=== PATIENT | male | born 1985 | race Caucasian/White ===

== ENCOUNTER 2016-04-17 08:02 | Inpatient (IN) | payer MEDICAID ==
[2016-04-17 08:20] VITALS: BP 127/84
[2016-04-17 08:51] LABS: URINE BILIRUBIN SMALL (NEGATIVE); URINE BLOOD NEGATIVE (NEGATIVE); URINE COLOR YELLOW; URINE GLUCOSE (UA) NEGATIVE (NEGATIVE); URINE KETONE NEGATIVE (NEGATIVE); URINE PH 7.5; URINE PROTEIN NEGATIVE (NEGATIVE)
--- NOTE | 2016-04-17 08:57 | ED Physician Chart ---
Chief Complaint/HPI - Patient Information Date Seen:: 04/17/16 Time Seen:: 08:52 Chief Complaint:: abd p History of Present Illness:: pt w hx of liver transplant at 7y.o.a. 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 pt says he has no idea how he got from [facility] to this area...he has holes in his memory..he does recall that he has been having abd p worsening x last 2 weeks in cental abd. w associated diarrrhea recently. some nausea but no vomiting. he recalls [facility] but cant tell me what they did or how recent. he denies drinking etoh. he says he is not normally on pain meds but does recall being on tramadol in last few months after a hospital dc. no recent fever. only med is prograf pts PDMP record shows he has had 140 tramadol 50mg tabs rxd since 03/20 over 5 different providers rx's... Allergies:: Allergies Allergy/AdvReac Type Severity Reaction Status Date / Time acetaminophen AdvReac Verified 04/17/16 08:18 erythromycin base AdvReac Verified 04/17/16 08:18 Vitals:: Vital Signs - 8 hr 04/17/16 04/17/16 08:19 08:21 Temp 97.7 F HR 81 RR 16 BP 127/84 127/84 O2 Sat % 100 Historian:: Patient Review of Systems - Review of Systems General/Constitutional: No fever, No chills, No weight loss, No weakness, No diaphoresis, No edema, No loss of appetite Skin: No skin lesions, No rash, No bruising Head: No headache, No light-headedness Eyes: No loss of vision, No pain, No diplopia ENT: No earache, No nasal drainage, No sore throat, No tinnitus Neck: No neck pain, No swelling, No thyromegaly, No stiffness, No mass noted Cardio Vascular: No chest pain, No palpitations, No PND, No orthopnea, No edema Pulmonary: No SOB, No cough, No sputum, No wheezing GI: Nausea, No vomiting, Diarrhea, Pain, No melena, No hematochezia, No constipation, No hematemesis G/U: No dysuria, No frequency, No hematuria Musculoskeletal: No bone or joint pain, No back pain, No muscle pain Endocrine: No polyuria, No polydipsia Psychiatric: No prior psych history, No depression, No anxiety, No suicidal ideation Hematopoietic: No bruising, No lymphadenopathy Allergic/Immuno: No urticaria, No angioedema Neurological: No syncope, No focal symptoms, No weakness, No paresthesia, No headache, No seizure, No dizziness, Confusion (???), No confusion, No vertigo Past Medical History - Past Medical History Past Medical History: Other (liver failure/..s/p Liver Transplant) Social History: Smoker, No Alcohol, Illicit Drug Use (mj only) Medication: Reviewed Family Medical History - Family Member Mother History Unknown: Yes Sister History Unknown: Yes Physical Exam - Physical Examination General/Constitutional: Awake, Well-developed, well-nourished, Alert, No distress, GCS 15, Non-toxic appearing, Ambulatory Other Gen/Cons comments:: very thin male. he is alert and easily talkative about subjects he feels forthcomming about...his memory seems very suspiciously selective...he had perfect memory of most events Head: Atraumatic Eyes: Lids, conjuctiva normal, PERRL, EOMI Skin: Nl inspection, No rash, No skin lesions, No ecchymosis, Well hydrated, No lymphadenopathy ENMT: External ears, nose nl, Nasal exam nl, Lips, teeth, gums nl Neck: Nontender, Full ROM w/o pain, No JVD, No nuchal rigidity, No bruit, No mass, No stridor Respiratory: Nl effort/Exclusion, Clear to Auscultation, No Wheeze/Rhonchi/Rales Cardio Vascular: RRR, No murmur, gallop, rubs, NL S1 S2 GI: No organomegaly, No hernia, Normal BS's, Nondistended, No mass/bruits, No McBurney tenderness Other GI comments:: tndr in mid abd. pos nabs. no masses. old scars at upper abd from prior abd sx. : No CVA tenderness Extremities: No tenderness or effusion, Full ROM, normal strength in all extremities, No edema, Normal digits & nails Neuro/Psych: Alert/oriented, DTR's symmetric, Normal sensory exam, Normal motor strength, Judgement/insight normal, Mood normal, Normal gait, No focal deficits Misc: normal gait, Normal back, No paraspinal tenderness Labs/Radiology/EKG Results - Lab Results Results: Laboratory Tests 04/17/16 04/17/16 04/17/16 08:40 08:40 08:55 WBC 18.5 H RBC 4.52 Hgb 14.7 Hct 43.2 MCV 95.5 MCH 32.5 H MCHC Differential 34.0 RDW 13.0 Plt Count 157 MPV 9.7 Band Neutrophils % 5 Neutrophils (Manual) 82 H Lymphocytes 4 L Monocytes 5 Eosinophils 4 Platelet Estimate ADEQUATE Platelet Morphology NORMAL RBC Morph Micro Appear NORMAL Sodium Potassium Chloride Carbon Dioxide Anion Gap BUN Creatinine Est GFR ( Amer) Est GFR (Non-Af Amer) BUN/Creatinine Ratio Glucose Whole Bld Lactic Acid Calcium Total Bilirubin AST ALT Alkaline Phosphatase Ammonia Total Protein Albumin Globulin Albumin/Globulin Ratio Amylase Lipase Urine Source CLEAN C Urine Color YELLOW Urine Clarity SL. CLOUDY Urine pH 7.5 Ur Specific [place] 1.020 Urine Protein NEGATIVE Urine Glucose (UA) NEGATIVE Urine Ketones NEGATIVE Urine Blood NEGATIVE Urine Nitrate NEGATIVE Urine Bilirubin SMALL H Urine Urobilinogen 1.0 Ur Leukocyte Esterase NEGATIVE Urine RBC NONE SEEN Urine WBC NONE SEEN Ur Epithelial Cells RARE Amorphous Sediment MANY PHOSPHATES Urine Bacteria NONE SEEN Urine Opiates Screen NEGATIVE Ur Barbiturates Screen NEGATIVE Ur Phencyclidine Scrn NEGATIVE Amphetamines Screen POSITIVE H U Methamphetamines Scrn POSITIVE H U Benzodiazepines Scrn NEGATIVE U Cocaine Metab Screen NEGATIVE U Cannabinoids Screen POSITIVE H Ethyl Alcohol 04/17/16 04/17/16 04/17/16 08:55 08:55 08:55 WBC RBC Hgb Hct MCV MCH MCHC Differential RDW Plt Count MPV Band Neutrophils % Neutrophils (Manual) Lymphocytes Monocytes Eosinophils Platelet Estimate Platelet Morphology RBC Morph Micro Appear Sodium 134 L Potassium 4.3 Chloride 109 H Carbon Dioxide 20.0 L Anion Gap 9.3 BUN 25 Creatinine 0.9 Est GFR ( Amer) > 60.0 Est GFR (Non-Af Amer) > 60.0 BUN/Creatinine Ratio 27.8 Glucose 114 H Whole Bld Lactic Acid 0.77 Calcium 9.3 Total Bilirubin 2.7 H AST 133 H ALT 207 H Alkaline Phosphatase 838 H Ammonia Total Protein 6.6 Albumin 4.2 Globulin 2.4 Albumin/Globulin Ratio 1.8 Amylase Lipase 43 Urine Source Urine Color Urine Clarity Urine pH Ur Specific [place] Urine Protein Urine Glucose (UA) Urine Ketones Urine Blood Urine Nitrate Urine Bilirubin Urine Urobilinogen Ur Leukocyte Esterase Urine RBC Urine WBC Ur Epithelial Cells Amorphous Sediment Urine Bacteria Urine Opiates Screen Ur Barbiturates Screen Ur Phencyclidine Scrn Amphetamines Screen U Methamphetamines Scrn U Benzodiazepines Scrn U Cocaine Metab Screen U Cannabinoids Screen Ethyl Alcohol 04/17/16 04/17/16 04/17/16 08:55 08:55 08:55 WBC RBC Hgb Hct MCV MCH MCHC Differential RDW Plt Count MPV Band Neutrophils % Neutrophils (Manual) Lymphocytes Monocytes Eosinophils Platelet Estimate Platelet Morphology RBC Morph Micro Appear Sodium Potassium Chloride Carbon Dioxide Anion Gap BUN Creatinine Est GFR ( Amer) Est GFR (Non-Af Amer) BUN/Creatinine Ratio Glucose Whole Bld Lactic Acid Calcium Total Bilirubin AST ALT Alkaline Phosphatase Ammonia 68 H Total Protein Albumin Globulin Albumin/Globulin Ratio Amylase 88 Lipase Urine Source Urine Color Urine Clarity Urine pH Ur Specific [place] Urine Protein Urine Glucose (UA) Urine Ketones Urine Blood Urine Nitrate Urine Bilirubin Urine Urobilinogen Ur Leukocyte Esterase Urine RBC Urine WBC Ur Epithelial Cells Amorphous Sediment Urine Bacteria Urine Opiates Screen Ur Barbiturates Screen Ur Phencyclidine Scrn Amphetamines Screen U Methamphetamines Scrn U Benzodiazepines Scrn U Cocaine Metab Screen U Cannabinoids Screen Ethyl Alcohol < 10 - Radiology Results Results: ct abd/p - nad. poor deliniation of bowel wall margins, hepatosplenomegally, mild gen bowel dilatation of unk sig, mild dist stool filled sigmoid colon Assessment - Assessment Critical Care Time: 90 Excludes all billable procedures: Yes This condition life threatening/high prob of deterioration: Yes Assessment/Comments:: pt w immunosupression due to liver transplans/anti-rejection meds. Seems unreliable as historian but high wbc could indicate a serious infection and r/o sepsis required. r/o of graft failure/rejection. ED Septic Shock - . Is Septic Shock (SBP<90, OR Lactate>4 mmol\L) present?: No - <6hrs of presentation: Vital Signs: Vital Signs - 8 hr 04/17/16 04/17/16 08:19 08:21 Temp 97.7 F HR 81 RR 16 BP 127/84 127/84 O2 Sat % 100 Reassessment (Disposition) - Reassessment Reassessment:: case dw Dr Kahn...will admit. (10:58) pt given zosyn as precaution given high wbc and imunosupression hx. Reassessment Condition:: Improved - Diagnosis Diagnosis:: 1 abdominal pain of unknown source 2 liver transplant pt on immunosupressive drug - Patient Disposition Admitted to:: Med/Surg Condition at Disposition:: Improved
[2016-04-17 08:58] LABS: URINE AMORPHOUS SEDIMENT MANY PHOSPHATES (NONE SEEN); URINE BACTERIA NONE SEEN /hpf (NONE SEEN); URINE EPITHELIAL CELLS RARE /lpf (FEW); URINE RBC NONE SEEN /hpf (0-5); URINE WBC NONE SEEN /hpf (0-5)
[2016-04-17] MEDS: Sodium Chloride 0.9% 1,000 ML IV ONE ×2 (09:15→21:18)
[2016-04-17 09:26] LABS: ALB/GLOB RATIO 1.8 (1.0-1.8); ALKALINE PHOSPHATASE 838 U/L (34-104); ANION GAP 9.3 (7.0-16.0); BILIRUBIN,TOTAL 2.7 mg/dL (0.3-1.0); BUN - UREA NITROGEN 25 mg/dL (7-25); BUN/CREATININE RATIO 27.8; CALCIUM SERUM 9.3 mg/dL (8.6-10.3); CHLORIDE 109 mEq/L (98-107); CREATININE - SERUM 0.9 mg/dL (0.7-1.3); GLUCOSE 114 mg/dL (70-105); HEMATOCRIT 43.2 % (39.0-49.0); HEMOGLOBIN 14.7 gm/dL (13.2-17.3); MEAN CELL VOLUME 95.5 fl (80-99); MEAN CORPUSCULAR HEMOGLOBIN 32.5 pg (26.0-30.0); MEAN PLATELET VOLUME 9.7 fl; PLATELET COUNT 157 Th/cmm (150-400); POTASSIUM SERUM 4.3 mEq/L (3.5-5.1); RED BLOOD COUNT 4.52 Mil/cmm (4.30-5.70); SGOT 133 U/L (13-39); SGPT/ALT 207 U/L (7-52); SODIUM SERUM 134 mEq/L (136-145); WHITE BLOOD COUNT 18.5 Th/cmm (4.8-10.8)
[2016-04-17 09:32] LABS: AMPHETAMINE URINE POSITIVE (NEGATIVE); BARBITURATES URINE NEGATIVE (NEGATIVE)
[2016-04-17 09:54] LABS: BAND NEUTROPHILE 5 % (0-10); EOSINOPHIL 4 % (0-5); NEUTROPHILS 82 % (40-80); TOTAL CELLS COUNTED 100
[2016-04-17 09:55] LABS: PLATELET ESTIMATE ADEQUATE (NORMAL); PLATELET MORPHOLOGY NORMAL (NORMAL)
[2016-04-17] MEDS ORDERED: HYDROmorphone 1 mg/mL 1mL Syr IVP STA (10:25)
[2016-04-17] MEDS ORDERED: HYDROmorphone 1 mg/mL 1mL Syr ONE (10:27)
--- NOTE | 2016-04-17 10:40 | Diagnostic Imaging Report ---
CT scan abdomen and pelvis without intravenous contrast HISTORY: Pain, liver transplant, leukocytosis Total DLP equals 336 CTDI equals 6.6 Axial sections were obtained from the xiphoid process down to the pubic symphysis. The exam is limited due to the absence of oral/bowel contrast. Poor delineation of the bowel margins. The liver exhibits a generous sized homogeneous parenchyma. The spleen is enlarged. No focal abnormality seen in the region of the pancreas. Debris filled stomach noted. No focal renal lesions. No calculi. No hydronephrosis. As noted above, evaluation of the bowel is limited due to the absence of oral/bowel contrast. Mild generalized small bowel dilatation of questionable significance. No definite evidence of obstruction. Mildly distended stool-filled sigmoid colon and rectum. No abnormal masses or fluid collections are seen within the pelvis. IMPRESSION: 1. Somewhat limited exam with poor delineation of bowel wall margins due to the absence of oral/bowel contrast 2. Hepatosplenomegaly 3. Mild generalized small bowel dilatation of questionable significance. Mildly distended stool-filled sigmoid colon the rectum.
[2016-04-17] MEDS ORDERED: Sodium Chloride 0.9% 1,000 ML IV ONE (11:11)
[2016-04-17] MEDS ORDERED: Morphine Sulfate 2 mg/mL 1mL Syr IV PRN (11:13)
--- NOTE | 2016-04-17 12:39 | Consultation ---
Consult Note - Consult Note Service Date: 04/17/16 Consult Note: PHYSICIAN Consultation Note: Date of Admission: 04/17/16 Purpose of Consultation: Leukocytosis. Chief Complaint: Patient CIARA BOYER was admitted to location Medical/ Surgical Unit I with ABDOMINAL PAIN. History of Present Illness: 30 Y M with history of liver transplant for liver failure, brought to the ED for abdominal pain. He had developed right sided abdominal pain for one day associated with nausea and diarrhea . On initial evaluation, his temperature was 97.7 degree F and WBC Count was 18,500. CT scan of abdomen and pelvis was performed and it showed hepato-splenomegaly and dilated small bowels. He feels little better at this time. He was started on zosyn and ID consult was called for further antibiotic management. Patient denies any fever, chills or diaphoresis. . Past Medical History: Liver transplant for liver failure. 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 Allergies Allergy/AdvReac Type Severity Reaction Status Date / Time acetaminophen AdvReac Verified 04/17/16 08:18 erythromycin base AdvReac Verified 04/17/16 08:18 Vital Signs Temp 98.4 F 04/17/16 11:25 Pulse 64 04/17/16 11:25 Resp 15 04/17/16 11:25 BP 105/68 04/17/16 11:25 Pulse Ox 99 04/17/16 11:25 Home Medication Medication Instructions Recorded Type Tacrolimus [Prograf] 5 mg PO BID 04/17/16 History Current Medications Generic Name Dose Route Start Last Admin Trade Name Freq PRN Reason Stop Dose Admin Sodium Chloride 1,000 mls @ 100 mls/hr 04/17/16 11:11 Nacl 0.9% IV 04/17/16 21:10 .Q10H ONE Piperacillin Sod/Tazobactam 100 mls @ 200 mls/hr 04/17/16 12:00 Sod 4.5 gm/ Sodium Chloride IV 06/16/16 11:59 Q6H SELENE Morphine Sulfate 2 mg 04/17/16 11:13 Morphine IV 06/16/16 11:12 Q3HR PRN Pain (Mild) Ondansetron HCl 4 mg 04/17/16 12:00 Zofran IV 06/16/16 11:59 Q4H PRN NAUSEA/VOMITING Review of Systems: A 12 point ROS was reviewed with the pertinent positive and negatives noted in the HPI. Physical Exam: General: Cachectic. No Acute Distress Vital Signs Temp 98.4 F 04/17/16 11:25 Pulse 64 04/17/16 11:25 Resp 15 04/17/16 11:25 BP 105/68 04/17/16 11:25 Pulse Ox 99 04/17/16 11:25 HEENT: EOMI Bilaterally, PERRLA Bilaterally, Head is normocephalic, atraumatic on inspection. Cardio: +S1/S2 Auscultated, RRR, no murmurs/rubs/gallops noted Respiratory: Clear to Auscultate Bilaterally Abdominal: Soft, Nondistended, tender RUQ and RLQ, BS present. scaphoid. Surgical scars on RUQ healed. Extremities: No Edema noted in the lower extremities Neurological: AAOx3 cranial Nerves II-XII intact bilaterally, Gait Steady, No Focal Deficits noted. Assessment/Plan: 1. abdominal pain with diarrhea. Suspect gastroenteritis. suspect CDAC. 2. Liver Transplant. 3. Transaminitis, suspect transplant rejection. may also from opportunistic infections. 4. Leukocytosis, suspect sepsis. may have other etiologies too. 5. Forgetfulness, suspect hepatic encephalopathy. improving. RECOMMENDATIONS: Will continue zosyn, start flagyl. check stool cultures and stool for c diff toxin. Check viral studies for CMV, EBV and HSV May transfer him to transplant center for further evaluation as there is transaminitis and increase in bilirubin level. GI consult. May get report from [facility]. WANG Oliva, William Kahn M.D. [id number]
[2016-04-17] MEDS ORDERED: Diatrizoate Meglumine/Diatri 30 mL Sol PO ONE (13:55)
[2016-04-17] MEDS: HYDROmorphone 1 mg/mL 1mL Syr IVP PRN ×2 (16:42→21:19)
[2016-04-17] MEDS ORDERED: TACROLIMUS 5 MG PO SCH ×2 (17:00)
[2016-04-17] MEDS: TACROLIMUS 5 MG PO SCH (17:40)
--- NOTE | 2016-04-17 19:02 | Admit Criteria Form ---
Admit Criteria Forms - Admit Criteria Diagnosis: ABDOMINAL PAIN Clinical Indications for Admission to Inpatient Care (Place 'X' for any and all applicable criteria): Admission is indicated for ANY ONE of the following(1)(2)(3)(4)(5): [ X]I. Inpatient admission required rather than observation care (Also use Abdominal Pain: Observation Care, as appropriate) because of ANY ONE of the following: [ ]a) Severe pain requiring acute inpatient management [ ]b) Identification of etiology/finding that requires inpatient care (eg, aortic dissection, free air) [ ]c) Absent bowel sounds with complete ileus(6) [ ]d) Suspected toxic megacolon [ ]e) Severe electrolyte abnormalities requiring inpatient care [ ]f) High fever or infection requiring inpatient admission as indicated by ANY ONE of following(7)(8): [ ] i) Appropriate outpatient or observational care antimicrobial treatment unavailable, not effective, or not feasible [ ] ii) Documented bacteremia [ ] iii) Temperature > 104.9 degrees F (oral) [ ] iv) T >103.1 F (oral) or < 96.8 F(rectal) that does not respond to all emergency treatment measures [ ]g) Signs of intestinal obstruction [B] [ ]h) Hemodynamic instability [ ]i) IV fluid to replace significant ongoing losses (greater than 3 L/m2 per day) (12)(13) [ ]j) Percutaneous or open drainage (eg, abscess, biliary tract ) procedures [ ]k) Parenteral nutrition regimen that must be implemented on inpatient basis [ X]l) Other condition,treatment or monitoring requiring inpatient admission. [ ]II. Peritoneal signs present [ ]III. Surgery needed that cannot be performed on an ambulatory basis. [ ]IV. Evaluation requires patient to not eat or drink for extended period ( eg, more than 24 hours). [ ]V. Contraindications and/or Inappropriate clinical situations for Observational Care in patients with abdominal pain, when ANY ONE of the following is required: [ ]a) Thorough evaluation is required to prevent catastrophic events due to delays in diagnosing (e.g.Mesenteric ischemia) 1,3 [ ]b) Patient with severe pathology or with chronic symptoms unlikely to improve in the ED stay (3) [ ]. General contraindications and/or Inappropriate clinical situations for Observational Care in patients with abdominal pain, when ANY ONE of the following is required: [ ]a) Prediction of prolongation of LOS based on ANY ONE of the following may be considered as a contraindication for observational care 2, 3, 4, 5, 6, 7, 8, 9, 10, 11 [ ]i) Age > 65 yrs. [ ]ii) Patient arriving by ambulance [ ]iii) Patient with high acuity [ ]iv) Patient requiring vital sign monitoring [ ]v) Patient on IV medication [ ]b) Systolic blood pressures 180mmHg 3,12 [ ]c) Patient with altered mental status including delirium and other alteration of consciousness, (3) [ ]d) Patient whose discharge disposition will be to a intermediate home or rehabilitation home should not be managed in Emergency Department Observation Unit. CMS rule requires 3 days hospital stay before such placement.3,13 [ ]e) Patient with failure to thrive due to broad array of etiologies 3,16,17 [ ]f) Inability to ambulate 3,14 Extended stay beyond goal length of stay may be needed for(2)(3): [ ]a) Persistent abdominal pain with suspected intra-abdominal process [ ]b) Diagnosed condition requiring continued stay (e.g., pancreatitis, complicated diverticulitis) [ ]c) Surgery (e.g., colectomy) The original [facility] content created by [employer] has been revised. The portions of the content which have been revised are identified through the use of italic text or in bold, and [facility] has neither reviewed nor approved the modified material.All other unmodified content is copyright [facility]. Please see references footnoted in the original [facility] edition 2016 Admit Criteria Met?: Yes
[2016-04-17 19:26] LABS: PROTHROMBIN TIME (TEST) 8.9 SECONDS (9.5-11.5)
[2016-04-17 19:44] LABS: INR 0.9 (0.5-1.4)
--- NOTE | 2016-04-17 20:02 | History & Physical ---
REASON FOR ADMISSION: Acute gastroenteritis in this patient with liver transplant on Prograf 5 mg twice a day and prednisone 40 mg once a day with elevated AST and ALT and alkaline phosphatase, right-sided pain with nausea and vomiting, came via ambulance, appeared that he was at the [facility] parking lot, paramedics were called and the patient was brought to the [facility] Emergency Room. Initial workup revealed WBC of 18.5 with band of 5 and the patient had midepigastric area pain, very poor historian. Other workup including CT abdomen and pelvis revealed that small bowel dilatation is noted, hepatosplenomegaly is noted and the patient urine tox screen positive for cannabinoids and methamphetamine and amphetamine positive. MEDICATIONS: With the patient include Prograf 5 mg twice a day the patient was taking 4 mg twice a day was increased at [facility] on 03/09/2016. The patient is also on prednisone 40 mg once a day. The patient is on Atarax 25 t.i.d. Also, on Protonix 40 once a day and metformin 500 twice a day and ursodiol 250 mg three times a day. SOCIAL HISTORY: The patient denies alcohol use or tobacco use. Tox screen positive for methamphetamine and amphetamine and cannabinoid. PAST MEDICAL HISTORY: The patient as a child has ADHD from age of 7. Medications from ADD or ADHD led into the liver failure requiring liver transplant. The patient is on above-mentioned medications. Also, previous history of liver rejection. The patient currently sleeping, awakened ____, but give very poor history. PHYSICAL EXAMINATION: GENERAL: Height is 1.75 meter, weight 68 kg, BMI 22.2, not in acute distress, well-developed, well-built. VITAL SIGNS: Temperature 97.3, pulse 70, respiratory rate 20, blood pressure 115/79, saturation on room air 98%. HEENT: No icterus. No pallor. No oral candidiasis. No petechiae. NECK: Supple. No JVD, bruits or lymphadenopathy. LUNGS: ____. CARDIOVASCULAR: S1 and S2 normal limits. ABDOMEN: Soft, scaphoid, loose bowel movement is noted. Bowel sound otherwise is active. No hepatosplenomegaly. EXTREMITIES: No leg edema. CENTRAL NERVOUS SYSTEMS: Cranial nerves intact. Nonfocal. MUSCULOSKELETAL: No clubbing, cyanosis or synovitis. LABORATORY TESTS: Urine tox screen positive for amphetamines, methamphetamine and cannabinoid. Urinalysis, pH 7.5, specific gravity 1.020 and wbcs not seen. Sodium 134, potassium 4.3, chloride 109, bicarbonate 20, BUN 25, creatinine 0.9, glucose of 114. Calcium 9.3. Bilirubin 2.7. AST 133. ALT 207. Alkaline phosphatase 838. Ammonia level 68, protein 6.6, albumin 4.2, amylase 88, lipase 43. WBC 18.5 thousand, hemoglobin 14.7, MCV 95, platelet of 157,000, neutrophil [address] abdomen and pelvis revealed small bowel dilatation, hepatosplenomegaly. Alcohol level was 92. ASSESSMENT AND PLAN: Acute gastroenteritis with right-sided abdominal pain with elevated transaminitis in this patient of liver transplant on Prograf and prednisone with leukocytosis and methamphetamine and cannabinoid positive in the urine. With elevated bilirubin, appeared obstructive jaundice could be from the toxicity of the amphetamine, methamphetamine, cannabinoid versus liver transplant rejection. The patient also ____ rule out small bowel obstruction, C. difficile colitis versus any other etiology including CMV, EBV, herpes simplex, C. difficile colitis, giardiasis. Workup initiated with C. difficile stool, Giardia in the stool and CMV, EBV, herpes simplex, PCR, stool for ova, stool for culture is already initiated. We will also monitor TSH, uric acid, urinalysis, CBC, CMP, amylase, lipase, ammonia level in the morning. Case discussed with registered nurse hh case manager and they will try to arrange his transfer to the transplant unit if the patient's condition worsens while the patient is waiting at present time small bowel follow through series for GI recommendation, Dr. Claudio. Case discussed with Dr. Claudio. Case discussed with IVDr. William and registered nurse hh case manager and nurse at length. Current condition is guarded. Overall prognosis is poor and depended on the patient's improvement of current condition. Advised the patient at length to avoid amphetamines, methamphetamines and cannabinoid and follow up at [facility] transplant unit. JOB# [id number]
[2016-04-18] MEDS: HYDROmorphone 1 mg/mL 1mL Syr IVP PRN ×5 (00:59→21:18)
--- NOTE | 2016-04-18 01:11 | Consultation ---
INPATIENT GASTROINTESTINAL CONSULTATION REFERRING PHYSICIAN: Dr. Arash Kahn. REASON FOR PROCEDURE: Elevated LFTs. 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 The patient has been on a prednisone and Prograf. He came into the hospital because he was had right-sided abdominal pain associated with some nausea and some loose bowel movements. Denies having any melena, hematochezia, hematemesis, or coffeeground emesis. PAST MEDICAL HISTORY: Liver failure, on immunosuppressants. PAST SURGICAL HISTORY: Liver transplant. FAMILY HISTORY: Negative for liver disease. SOCIAL HISTORY: Denies tobacco or alcohol. ALLERGIES: ACETAMINOPHEN, ERYTHROMYCIN. CURRENT MEDICATIONS: Morphine, Zofran, Zosyn. REVIEW OF SYSTEMS: Ten point review of system was performed and the pertinent positives were nausea and abdominal pain, loose bowel movements. All other systems were otherwise negative. PHYSICAL EXAMINATION: VITAL SIGNS: Temperature is 97.3, breathing 20, pulse of 70, blood pressure 115/79, satting 98%. GENERAL: No apparent distress. EYES: Anicteric, normal conjunctivae. HEENT: Normocephalic, atraumatic. Moist mucous membranes. NECK: Soft, supple. CHEST: Clear. No effort. CARDIOVASCULAR: Regular rate and rhythm. ABDOMEN: Soft, nondistended, tender right quadrant. No rebound or guarding. SKIN: Warm, dry. EXTREMITIES: Reveal no cyanosis. LABORATORY DATA: Show white count ____, hemoglobin 14.7, platelets of 157, total bilirubin 2.7, AST 133, ALT 207, alkaline phosphatase 838, ammonia 68, amylase 88, lipase 43. Alcohol level was negative. Marijuana was positive. Amphetamine was positive. Methamphetamine was positive. CT abdomen and pelvis was performed and showed hepatosplenomegaly, generalized small bowel dilatation of questionable significance. IMPRESSION: This is a 30-year-old male with abdominal pain, elevated LFTs. Cause of the abdominal pain could be from an ileus versus small-bowel obstruction, elevated LFTs could be from rejection versus acute liver injury, due to toxin effect, especially this patient has methamphetamine, amphetamine and marijuana in his system. He was told to avoid illicit drugs. They have a detrimental effect on his liver. PLAN: 1. Small bowel follow through. 2. Follow LFTs. 3. Check stool studies. 4. Consider transfer to ____ Center with liver transplant capability for care. Thank you for allowing me to participate. Please call me if any questions. [facility]# [id number]
[2016-04-18] MEDS: TACROLIMUS 5 MG PO SCH ×2 (06:23→18:51)
[2016-04-18 06:39] LABS: % BASOPHILS 0.7 % (0.0-2.0); % EOSINOPHILS 4.7 % (0.0-5.0); % LYMPHOCYTES 30.4 % (20.0-50.0); % MONOCYTES 10.4 % (2.0-10.0); % NEUTROPHILS 53.8 % (40.0-80.0); HEMOGLOBIN 12.9 gm/dL (13.2-17.3); MEAN CELL VOLUME 96.9 fl (80-99); MEAN CORPUSCULAR HEMOGLOBIN 33.4 pg (26.0-30.0); MEAN CORPUSCULAR HGB CONC 34.4 pg (28.0-36.0); MEAN PLATELET VOLUME 9.8 fl; NEUTROPHILE ABSOLUTE 2.4 Th/cmm (1.8-8.0); RED BLOOD COUNT 3.86 Mil/cmm (4.30-5.70); RED CELL DISTRIBUTION WIDTH 12.9 % (11.5-20.0)
[2016-04-18 06:55] LABS: ALB/GLOB RATIO 1.8 (1.0-1.8); ALKALINE PHOSPHATASE 740 U/L (34-104); ANION GAP 2.5 (7.0-16.0); BUN - UREA NITROGEN 17 mg/dL (7-25); CALCIUM SERUM 8.8 mg/dL (8.6-10.3); CARBON DIOXIDE 25.4 mEq/L (21.0-31.0); CHLORIDE 110 mEq/L (98-107); GLUCOSE 124 mg/dL (70-105); POTASSIUM SERUM 3.9 mEq/L (3.5-5.1); SGOT 105 U/L (13-39); SGPT/ALT 174 U/L (7-52); SODIUM SERUM 134 mEq/L (136-145)
[2016-04-18 06:58] LABS: URIC ACID 3.1 mg/dL (4.4-7.6)
[2016-04-18 07:06] LABS: HEMATOCRIT 37.4 % (39.0-49.0); PLATELET COUNT 104 Th/cmm (150-400); WHITE BLOOD COUNT 4.4 Th/cmm (4.8-10.8)
[2016-04-18 07:49] LABS: TSH 1.52 uIU/ml (0.34-5.60)
--- NOTE | 2016-04-18 16:50 | Diagnostic Imaging Report ---
Small bowel follow-through HISTORY: Pain The preliminary viscera washer radiograph demonstrates stool-filled nondilated large bowel. Contrast passed freely from the stomach into the small bowel. Normal small bowel caliber and mucosal fold pattern. Normal transit time. No obvious focal lesions. No evidence of any extrinsic masses. IMPRESSION: Negative examination
[2016-04-19] MEDS: HYDROmorphone 1 mg/mL 1mL Syr IVP PRN ×5 (02:33→19:51)
[2016-04-19 05:46] LABS: % BASOPHILS 0.2 % (0.0-2.0); % LYMPHOCYTES 16.5 % (20.0-50.0); % MONOCYTES 6.2 % (2.0-10.0); % NEUTROPHILS 76.1 % (40.0-80.0); HEMOGLOBIN 13.2 gm/dL (13.2-17.3); MEAN CELL VOLUME 96.4 fl (80-99); MEAN CORPUSCULAR HEMOGLOBIN 33.4 pg (26.0-30.0); MEAN CORPUSCULAR HGB CONC 34.6 pg (28.0-36.0); MEAN PLATELET VOLUME 9.5 fl; PLATELET COUNT 113 Th/cmm (150-400); RED BLOOD COUNT 3.94 Mil/cmm (4.30-5.70); RED CELL DISTRIBUTION WIDTH 12.6 % (11.5-20.0)
[2016-04-19 06:44] LABS: ALB/GLOB RATIO 1.6 (1.0-1.8); ALKALINE PHOSPHATASE 683 U/L (34-104); ANION GAP 9.4 (7.0-16.0); BILIRUBIN,TOTAL 1.6 mg/dL (0.3-1.0); BUN - UREA NITROGEN 16 mg/dL (7-25); CALCIUM SERUM 9.2 mg/dL (8.6-10.3); CHLORIDE 103 mEq/L (98-107); GLUCOSE 156 mg/dL (70-105); POTASSIUM SERUM 3.4 mEq/L (3.5-5.1); SGOT 84 U/L (13-39); SGPT/ALT 169 U/L (7-52); SODIUM SERUM 138 mEq/L (136-145)
[2016-04-19 07:09] LABS: WHITE BLOOD COUNT 7.9 Th/cmm (4.8-10.8)
[2016-04-19 12:40] LABS: URINE BACTERIA NONE SEEN /hpf (NONE SEEN); URINE BILIRUBIN NEGATIVE (NEGATIVE); URINE BLOOD NEGATIVE (NEGATIVE); URINE COLOR YELLOW; URINE EPITHELIAL CELLS RARE /lpf (FEW); URINE GLUCOSE (UA) NEGATIVE (NEGATIVE); URINE KETONE NEGATIVE (NEGATIVE); URINE PROTEIN NEGATIVE (NEGATIVE); URINE RBC NONE SEEN /hpf (0-5); URINE WBC NONE SEEN /hpf (0-5)
[2016-04-19 12:41] LABS: URINE AMORPHOUS SEDIMENT MODERATE PHOSPHATES (NONE SEEN)
[2016-04-19] MEDS ORDERED: Potassium Chloride 20 mEq ER Tab PO ONE (12:52)
--- NOTE | 2016-04-19 13:55 | Infectious Disease Prog Note ---
Infectious Disease Subjective - Review of Systems Service Date: 04/19/16 Infectious Disease Objective - Results Result Diagrams: 04/19/16 05:35 04/19/16 05:35 Recent Labs: Laboratory Last Values WBC 7.9 Th/cmm (4.8-10.8) D 04/19/16 05:35 RBC 3.94 Mil/cmm (4.30-5.70) L 04/19/16 05:35 Hgb 13.2 gm/dL (13.2-17.3) 04/19/16 05:35 Hct 38.0 % (39.0-49.0) L 04/19/16 05:35 MCV 96.4 fl (80-99) 04/19/16 05:35 MCH 33.4 pg (26.0-30.0) H 04/19/16 05:35 MCHC Differential 34.6 pg (28.0-36.0) 04/19/16 05:35 RDW 12.6 % (11.5-20.0) 04/19/16 05:35 Plt Count 113 Th/cmm (150-400) L 04/19/16 05:35 MPV 9.5 fl 04/19/16 05:35 Neutrophils % 76.1 % (40.0-80.0) 04/19/16 05:35 Band Neutrophils % 5 % (0-10) 04/17/16 08:55 Lymphocytes % 16.5 % (20.0-50.0) L 04/19/16 05:35 Monocytes % 6.2 % (2.0-10.0) 04/19/16 05:35 Eosinophils % 1.0 % (0.0-5.0) 04/19/16 05:35 Basophils % 0.2 % (0.0-2.0) 04/19/16 05:35 Neutrophils (Manual) 82 % (40-80) H 04/17/16 08:55 Lymphocytes 4 % (20-50) L 04/17/16 08:55 Monocytes 5 % (2-10) 04/17/16 08:55 Eosinophils 4 % (0-5) 04/17/16 08:55 Platelet Estimate ADEQUATE (NORMAL) 04/17/16 08:55 Platelet Morphology NORMAL (NORMAL) 04/17/16 08:55 RBC Morph Micro Appear NORMAL (NORMAL) 04/17/16 08:55 PT 8.9 SECONDS (9.5-11.5) L 04/17/16 17:45 INR 0.90 (0.5-1.4) 04/17/16 17:45 Sodium 138 mEq/L (136-145) 04/19/16 05:35 Potassium 3.4 mEq/L (3.5-5.1) L 04/19/16 05:35 Chloride 103 mEq/L (98-107) 04/19/16 05:35 Carbon Dioxide 29.0 mEq/L (21.0-31.0) 04/19/16 05:35 Anion Gap 9.4 (7.0-16.0) 04/19/16 05:35 BUN 16 mg/dL (7-25) 04/19/16 05:35 Creatinine 1.0 mg/dL (0.7-1.3) 04/19/16 05:35 Est GFR ( Amer) > 60.0 ml/min (>90) 04/19/16 05:35 Est GFR (Non-Af Amer) > 60.0 ml/min 04/19/16 05:35 BUN/Creatinine Ratio 16.0 04/19/16 05:35 Glucose 156 mg/dL (70-105) H 04/19/16 05:35 Whole Bld Lactic Acid 0.77 mmol/L (0.60-2.00) 04/17/16 08:55 Uric Acid 3.1 mg/dL (4.4-7.6) L 04/18/16 06:16 Calcium 9.2 mg/dL (8.6-10.3) 04/19/16 05:35 Total Bilirubin 1.6 mg/dL (0.3-1.0) H 04/19/16 05:35 AST 84 U/L (13-39) H 04/19/16 05:35 ALT 169 U/L (7-52) H 04/19/16 05:35 Alkaline Phosphatase 683 U/L (34-104) H 04/19/16 05:35 Ammonia 65 umol/L (16-53) H 04/18/16 06:16 Total Protein 5.6 gm/dL (6.0-8.3) L 04/19/16 05:35 Albumin 3.4 gm/dL (4.2-5.5) L 04/19/16 05:35 Globulin 2.2 gm/dL 04/19/16 05:35 Albumin/Globulin Ratio 1.6 (1.0-1.8) 04/19/16 05:35 Triglycerides 32 mg/dL (<150) 04/18/16 06:16 Cholesterol 211 mg/dL (<200) H 04/18/16 06:16 LDL Cholesterol Direct 65 mg/dL (75-193) L 04/18/16 06:16 HDL Cholesterol 104 mg/dL (23-92) H 04/18/16 06:16 Amylase 84 U/L (29-103) 04/18/16 06:16 Lipase 56 U/L (11-82) 04/18/16 06:16 TSH 1.52 uIU/ml (0.34-5.60) 04/18/16 06:16 Urine Source MIDSTREAM 04/19/16 11:55 Urine Color YELLOW 04/19/16 11:55 Urine Clarity SL. CLOUDY (CLEAR) 04/19/16 11:55 Urine pH 7.0 04/19/16 11:55 Ur Specific [place] 1.020 (1.005-1.030) 04/19/16 11:55 Urine Protein NEGATIVE mg/dL (NEGATIVE) 04/19/16 11:55 Urine Glucose (UA) NEGATIVE mg/dL (NEGATIVE) 04/19/16 11:55 Urine Ketones NEGATIVE mg/dL (NEGATIVE) 04/19/16 11:55 Urine Blood NEGATIVE (NEGATIVE) 04/19/16 11:55 Urine Nitrate NEGATIVE (NEGATIVE) 04/19/16 11:55 Urine Bilirubin NEGATIVE (NEGATIVE) 04/19/16 11:55 Urine Urobilinogen 2.0 E.U./dL (0.2 - 1.0) 04/19/16 11:55 Ur Leukocyte Esterase NEGATIVE (NEGATIVE) 04/19/16 11:55 Urine RBC NONE SEEN /hpf (0-5) 04/19/16 11:55 Urine WBC NONE SEEN /hpf (0-5) 04/19/16 11:55 Ur Epithelial Cells RARE /lpf (FEW) 04/19/16 11:55 Amorphous Sediment MODERATE PHOSPHATES (NONE SEEN) 04/19/16 11:55 Urine Bacteria NONE SEEN /hpf (NONE SEEN) 04/19/16 11:55 Urine Opiates Screen NEGATIVE (NEGATIVE) 04/17/16 08:40 Ur Barbiturates Screen NEGATIVE (NEGATIVE) 04/17/16 08:40 Ur Phencyclidine Scrn NEGATIVE (NEGATIVE) 04/17/16 08:40 Amphetamines Screen POSITIVE (NEGATIVE) H 04/17/16 08:40 U Methamphetamines Scrn POSITIVE (NEGATIVE) H 04/17/16 08:40 U Benzodiazepines Scrn NEGATIVE (NEGATIVE) 04/17/16 08:40 U Cocaine Metab Screen NEGATIVE (NEGATIVE) 04/17/16 08:40 U Cannabinoids Screen POSITIVE (NEGATIVE) H 04/17/16 08:40 Ethyl Alcohol < 10 mg/dL (0-10) 04/17/16 08:55 - Physical Exam Vitals and I&O: Vital Signs Temp 97.6 F 04/19/16 12:00 Pulse 60 04/19/16 12:00 Resp 17 04/19/16 12:00 BP 112/70 04/19/16 12:00 Pulse Ox 100 04/19/16 12:00 Intake & Output 04/18/16 04/19/16 04/19/16 18:59 06:59 18:59 Intake Total 200 560 Output Total 850 Balance 200 -290 Intake: Intake, IV Amount 200 200 Piperacillin Sodium/ 200 200 Tazobact 4.5 gm In Sodium Chloride 0.9% 100 ml @ 200 mls/hr IV Q6H [facility] Rx# :[id number] Oral 360 Output: Urine 850 Active Medications: Current Medications Hydromorphone HCl (Dilaudid) 0.5 mg IVP Q4HR PRN PRN Reason: Severe Pain Stop: 06/16/16 16:33 Last Admin: 04/19/16 11:16 Dose: 0.5 mg Hydroxyzine HCl (Atarax) 10 mg PO Q6H PRN; Protocol PRN Reason: itch Stop: 06/16/16 14:31 Piperacillin Sod/Tazobactam (Sod 4.5 gm/ Sodium Chloride) 100 mls @ 200 mls/hr IV Q6H [facility] Stop: 06/16/16 11:59 Last Admin: 04/19/16 11:17 Dose: 200 mls/hr Ondansetron HCl (Zofran) 4 mg IV Q4H PRN PRN Reason: NAUSEA/VOMITING Stop: 06/16/16 11:59 Patient Own Med- Tacrolimus (Prograf) 5mg Cap 1 PO Q12H [facility] Stop: 06/16/16 17:59 Last Admin: 04/18/16 18:51 Dose: 1 Prednisone (Deltasone) 40 mg PO DAILY [facility] Stop: 06/17/16 08:59 Last Admin: 04/19/16 09:51 Dose: 40 mg General: no acute distress, well developed, well nourished HEENT: atraumatic, normocephalic, PERRLA, EOMI Neck: supple, no thyromegaly, no lymphadenopathy Cardiovascular: S1S2, regular Lungs: clear to auscultation bilaterally, clear to percussion Abdomen: soft, tender (RUQ), no distended Extremities: no cyanosis, no clubbing, no edema Neurological: awake, alert, oriented Skin: intact Infectious Disease Assmt/Plan - Assessment Assessment: Impression: 1. Leukocytosis improved. 2. Diarrhea better. r/o enterocolitis, viral colitis. 3. Transaminitis. suspect liver transplant rejection, versus viral hepatitis. 4. Immunosuppressed 2/2 immunosuppresant. - Plan Plan: Continue same treatment, may consider colonoscopy. may transfer to the hospital, where he is followed by by his physician for his transplant. follow up on the pending labs. If patient stays here and continues to have transaminitis, consider liver biopsy.
[2016-04-19] MEDS: TACROLIMUS 5 MG PO SCH (17:38)
[2016-04-20] MEDS: HYDROmorphone 1 mg/mL 1mL Syr IVP PRN ×5 (04:27→21:36)
[2016-04-20 07:15] LABS: % BASOPHILS 0.3 % (0.0-2.0); % EOSINOPHILS 1.3 % (0.0-5.0); % LYMPHOCYTES 22.1 % (20.0-50.0); % MONOCYTES 7.2 % (2.0-10.0); % NEUTROPHILS 69.1 % (40.0-80.0); HEMATOCRIT 38.2 % (39.0-49.0); HEMOGLOBIN 13.1 gm/dL (13.2-17.3); MEAN CORPUSCULAR HEMOGLOBIN 33.7 pg (26.0-30.0); MEAN CORPUSCULAR HGB CONC 34.4 pg (28.0-36.0); MEAN PLATELET VOLUME 9.9 fl; NEUTROPHILE ABSOLUTE 4.9 Th/cmm (1.8-8.0); PLATELET COUNT 109 Th/cmm (150-400); RED BLOOD COUNT 3.89 Mil/cmm (4.30-5.70); RED CELL DISTRIBUTION WIDTH 12.5 % (11.5-20.0)
[2016-04-20 07:35] LABS: ALB/GLOB RATIO 1.6 (1.0-1.8); ALKALINE PHOSPHATASE 643 U/L (34-104); BILIRUBIN,TOTAL 1.3 mg/dL (0.3-1.0); BUN - UREA NITROGEN 19 mg/dL (7-25); BUN/CREATININE RATIO 17.3; CALCIUM SERUM 9.3 mg/dL (8.6-10.3); CARBON DIOXIDE 29.3 mEq/L (21.0-31.0); CHLORIDE 104 mEq/L (98-107); CREATININE - SERUM 1.1 mg/dL (0.7-1.3); GLUCOSE 123 mg/dL (70-105); POTASSIUM SERUM 3.3 mEq/L (3.5-5.1); SGOT 90 U/L (13-39); SGPT/ALT 182 U/L (7-52); SODIUM SERUM 138 mEq/L (136-145)
[2016-04-20 07:36] LABS: ALB/GLOB RATIO 1.7 (1.0-1.8); BILIRUBIN,DIRECT 0.63 mg/dL (0.0-0.2); BILIRUBIN,TOTAL 1.3 mg/dL (0.3-1.0)
[2016-04-20] MEDS ORDERED: KCL 20mEq/100mL Premix 20 MEQ/100 ML PIGGYBACK IV ONE (08:28)
[2016-04-20] MEDS ORDERED: Potassium Chloride 20 mEq ER Tab PO ONE (10:00)
--- NOTE | 2016-04-20 11:40 | Infectious Disease Prog Note ---
Infectious Disease Subjective - Review of Systems Service Date: 04/20/16 Subjective: there is no new change, there is no fever. Infectious Disease Objective - Results Result Diagrams: 04/20/16 06:50 04/20/16 06:50 Recent Labs: Laboratory Last Values WBC 7.0 Th/cmm (4.8-10.8) 04/20/16 06:50 RBC 3.89 Mil/cmm (4.30-5.70) L 04/20/16 06:50 Hgb 13.1 gm/dL (13.2-17.3) L 04/20/16 06:50 Hct 38.2 % (39.0-49.0) L 04/20/16 06:50 MCV 98.0 fl (80-99) 04/20/16 06:50 MCH 33.7 pg (26.0-30.0) H 04/20/16 06:50 MCHC Differential 34.4 pg (28.0-36.0) 04/20/16 06:50 RDW 12.5 % (11.5-20.0) 04/20/16 06:50 Plt Count 109 Th/cmm (150-400) L 04/20/16 06:50 MPV 9.9 fl 04/20/16 06:50 Neutrophils % 69.1 % (40.0-80.0) 04/20/16 06:50 Band Neutrophils % 5 % (0-10) 04/17/16 08:55 Lymphocytes % 22.1 % (20.0-50.0) 04/20/16 06:50 Monocytes % 7.2 % (2.0-10.0) 04/20/16 06:50 Eosinophils % 1.3 % (0.0-5.0) 04/20/16 06:50 Basophils % 0.3 % (0.0-2.0) 04/20/16 06:50 Neutrophils (Manual) 82 % (40-80) H 04/17/16 08:55 Lymphocytes 4 % (20-50) L 04/17/16 08:55 Monocytes 5 % (2-10) 04/17/16 08:55 Eosinophils 4 % (0-5) 04/17/16 08:55 Platelet Estimate ADEQUATE (NORMAL) 04/17/16 08:55 Platelet Morphology NORMAL (NORMAL) 04/17/16 08:55 RBC Morph Micro Appear NORMAL (NORMAL) 04/17/16 08:55 PT 8.9 SECONDS (9.5-11.5) L 04/17/16 17:45 INR 0.90 (0.5-1.4) 04/17/16 17:45 Sodium 138 mEq/L (136-145) 04/20/16 06:50 Potassium 3.3 mEq/L (3.5-5.1) L 04/20/16 06:50 Chloride 104 mEq/L (98-107) 04/20/16 06:50 Carbon Dioxide 29.3 mEq/L (21.0-31.0) 04/20/16 06:50 Anion Gap 8.0 (7.0-16.0) 04/20/16 06:50 BUN 19 mg/dL (7-25) 04/20/16 06:50 Creatinine 1.1 mg/dL (0.7-1.3) 04/20/16 06:50 Est GFR ( Amer) > 60.0 ml/min (>90) 04/20/16 06:50 Est GFR (Non-Af Amer) > 60.0 ml/min 04/20/16 06:50 BUN/Creatinine Ratio 17.3 04/20/16 06:50 Glucose 123 mg/dL (70-105) H 04/20/16 06:50 Whole Bld Lactic Acid 0.77 mmol/L (0.60-2.00) 04/17/16 08:55 Uric Acid 3.1 mg/dL (4.4-7.6) L 04/18/16 06:16 Calcium 9.3 mg/dL (8.6-10.3) 04/20/16 06:50 Total Bilirubin 1.3 mg/dL (0.3-1.0) H 04/20/16 06:50 Direct Bilirubin 0.63 mg/dL (0.0-0.2) H 04/20/16 06:50 AST 88 U/L (13-39) H 04/20/16 06:50 ALT 181 U/L (7-52) H 04/20/16 06:50 Alkaline Phosphatase 639 U/L (34-104) H 04/20/16 06:50 Ammonia 65 umol/L (16-53) H 04/18/16 06:16 Total Protein 5.7 gm/dL (6.0-8.3) L 04/20/16 06:50 Albumin 3.6 gm/dL (4.2-5.5) L 04/20/16 06:50 Globulin 2.1 gm/dL 04/20/16 06:50 Albumin/Globulin Ratio 1.7 (1.0-1.8) 04/20/16 06:50 Triglycerides 32 mg/dL (<150) 04/18/16 06:16 Cholesterol 211 mg/dL (<200) H 04/18/16 06:16 LDL Cholesterol Direct 65 mg/dL (75-193) L 04/18/16 06:16 HDL Cholesterol 104 mg/dL (23-92) H 04/18/16 06:16 Amylase 84 U/L (29-103) 04/18/16 06:16 Lipase 56 U/L (11-82) 04/18/16 06:16 TSH 1.52 uIU/ml (0.34-5.60) 04/18/16 06:16 Urine Source MIDSTREAM 04/19/16 11:55 Urine Color YELLOW 04/19/16 11:55 Urine Clarity SL. CLOUDY (CLEAR) 04/19/16 11:55 Urine pH 7.0 04/19/16 11:55 Ur Specific [place] 1.020 (1.005-1.030) 04/19/16 11:55 Urine Protein NEGATIVE mg/dL (NEGATIVE) 04/19/16 11:55 Urine Glucose (UA) NEGATIVE mg/dL (NEGATIVE) 04/19/16 11:55 Urine Ketones NEGATIVE mg/dL (NEGATIVE) 04/19/16 11:55 Urine Blood NEGATIVE (NEGATIVE) 04/19/16 11:55 Urine Nitrate NEGATIVE (NEGATIVE) 04/19/16 11:55 Urine Bilirubin NEGATIVE (NEGATIVE) 04/19/16 11:55 Urine Urobilinogen 2.0 E.U./dL (0.2 - 1.0) 04/19/16 11:55 Ur Leukocyte Esterase NEGATIVE (NEGATIVE) 04/19/16 11:55 Urine RBC NONE SEEN /hpf (0-5) 04/19/16 11:55 Urine WBC NONE SEEN /hpf (0-5) 04/19/16 11:55 Ur Epithelial Cells RARE /lpf (FEW) 04/19/16 11:55 Amorphous Sediment MODERATE PHOSPHATES (NONE SEEN) 04/19/16 11:55 Urine Bacteria NONE SEEN /hpf (NONE SEEN) 04/19/16 11:55 Urine Opiates Screen NEGATIVE (NEGATIVE) 04/17/16 08:40 Ur Barbiturates Screen NEGATIVE (NEGATIVE) 04/17/16 08:40 Ur Phencyclidine Scrn NEGATIVE (NEGATIVE) 04/17/16 08:40 Amphetamines Screen POSITIVE (NEGATIVE) H 04/17/16 08:40 U Methamphetamines Scrn POSITIVE (NEGATIVE) H 04/17/16 08:40 U Benzodiazepines Scrn NEGATIVE (NEGATIVE) 04/17/16 08:40 U Cocaine Metab Screen NEGATIVE (NEGATIVE) 04/17/16 08:40 U Cannabinoids Screen POSITIVE (NEGATIVE) H 04/17/16 08:40 Ethyl Alcohol < 10 mg/dL (0-10) 04/17/16 08:55 - Physical Exam Vitals and I&O: Vital Signs Temp 98.5 F 04/20/16 08:00 Pulse 83 04/20/16 08:00 Resp 18 04/20/16 08:00 BP 115/71 04/20/16 08:00 Pulse Ox 98 04/20/16 08:00 Intake & Output 04/19/16 04/20/16 04/20/16 18:59 06:59 18:59 Intake Total 200 900 100 Balance 200 900 100 Intake: Intake, IV Amount 200 100 100 Piperacillin Sodium/ 200 100 100 Tazobact 4.5 gm In Sodium Chloride 0.9% 100 ml @ 200 mls/hr IV Q6H [facility] Rx# :[id number] Oral 800 Active Medications: Current Medications Hydromorphone HCl (Dilaudid) 0.5 mg IVP Q4HR PRN PRN Reason: Severe Pain Stop: 06/16/16 16:33 Last Admin: 04/20/16 09:04 Dose: 0.5 mg Hydroxyzine HCl (Atarax) 10 mg PO Q6H PRN; Protocol PRN Reason: itch Stop: 06/16/16 14:31 Piperacillin Sod/Tazobactam (Sod 4.5 gm/ Sodium Chloride) 100 mls @ 200 mls/hr IV Q6H [facility] Stop: 06/16/16 11:59 Last Admin: 04/20/16 11:07 Dose: 200 mls/hr Ondansetron HCl (Zofran) 4 mg IV Q4H PRN PRN Reason: NAUSEA/VOMITING Stop: 06/16/16 11:59 Patient Own Med- Tacrolimus (Prograf) 5mg Cap 1 PO Q12H [facility] Stop: 06/16/16 17:59 Last Admin: 04/19/16 17:38 Dose: 1 Prednisone (Deltasone) 40 mg PO DAILY [facility] Stop: 06/17/16 08:59 Last Admin: 04/20/16 09:03 Dose: 40 mg General: no acute distress, well developed, well nourished HEENT: atraumatic, normocephalic, PERRLA, EOMI Neck: supple Cardiovascular: S1S2, regular Lungs: clear to auscultation bilaterally, clear to percussion Abdomen: soft, no tender, no distended, no mass Extremities: no cyanosis, no clubbing, no edema Neurological: awake, alert, oriented Skin: intact Infectious Disease Assmt/Plan - Assessment Assessment: Impression: 1. Leukocytosis improved. 2. Diarrhea better. r/o enterocolitis, viral colitis. 3. Transaminitis. suspect liver transplant rejection, versus viral hepatitis. 4. Immunosuppressed 2/2 immunosuppresant. - Plan Plan: may discharge the patient and he can follow up with transplant physician.
[2016-04-20 15:50] LABS: EPSTEIN BARR AB VCA IGM <36.0; EPSTEIN BARR VCA IGG 203
[2016-04-20 15:59] LABS: EBV DNA QN PCR NEGATIVE
[2016-04-20 16:19] LABS: EBVNA (NUC AG IGG) <18
[2016-04-20 16:40] LABS: HERPES SIMPLEX 1 AB IGG NEGATIVE; HERPES SIMPLEX 2 AB IGG NEGATIVE; HERPES SIMPLEX IGM NEGATIVE
[2016-04-20] MEDS: TACROLIMUS 5 MG PO SCH (17:22)
[2016-04-21] MEDS: HYDROmorphone 1 mg/mL 1mL Syr IVP PRN ×3 (01:45→08:34)
[2016-04-21] MEDS: TACROLIMUS 5 MG PO SCH (05:54)
[2016-04-21 06:27] LABS: % BASOPHILS 0.3 % (0.0-2.0); % EOSINOPHILS 1.1 % (0.0-5.0); % LYMPHOCYTES 21.4 % (20.0-50.0); % MONOCYTES 6.3 % (2.0-10.0); % NEUTROPHILS 70.9 % (40.0-80.0); HEMATOCRIT 35.7 % (39.0-49.0); HEMOGLOBIN 12.2 gm/dL (13.2-17.3); MEAN CORPUSCULAR HEMOGLOBIN 32.8 pg (26.0-30.0); MEAN CORPUSCULAR HGB CONC 34.1 pg (28.0-36.0); MEAN PLATELET VOLUME 9.8 fl; NEUTROPHILE ABSOLUTE 4.8 Th/cmm (1.8-8.0); PLATELET COUNT 101 Th/cmm (150-400); RED BLOOD COUNT 3.72 Mil/cmm (4.30-5.70); RED CELL DISTRIBUTION WIDTH 12.8 % (11.5-20.0); WHITE BLOOD COUNT 6.7 Th/cmm (4.8-10.8)
[2016-04-21 06:55] LABS: ALB/GLOB RATIO 1.7 (1.0-1.8); ALKALINE PHOSPHATASE 535 U/L (34-104); ANION GAP 7.5 (7.0-16.0); BILIRUBIN,TOTAL 1.3 mg/dL (0.3-1.0); BUN - UREA NITROGEN 21 mg/dL (7-25); BUN/CREATININE RATIO 19.1; CALCIUM SERUM 8.9 mg/dL (8.6-10.3); CHLORIDE 107 mEq/L (98-107); CREATININE - SERUM 1.1 mg/dL (0.7-1.3); GLUCOSE 121 mg/dL (70-105); POTASSIUM SERUM 3.5 mEq/L (3.5-5.1); SGOT 91 U/L (13-39); SGPT/ALT 182 U/L (7-52); SODIUM SERUM 136 mEq/L (136-145)
--- NOTE | 2016-04-24 00:12 | Discharge Summary ---
FINAL DIAGNOSES: 1. Acute gastroenteritis with right-sided abdominal pain, which improved. 2. Elevated transaminitis in the patient with liver transplant, on Prograf 5 mg twice a day, increased the dose from 4 mg twice a day in the past 2 weeks, and also started on prednisone 20 mg twice a day, which improved with intravenous fluid and then remained stable. 3. Leukocytosis, which resolved. Most likely hemoconcentration. 4. Polysubstance abuse including methamphetamine use and marijuana use. HOSPITAL COURSE/IMPORTANT LABORATORY DATA: This one is a 30-year-old gentlemen. At age of 7, he had a reaction to ADD medication requiring liver transplant in 1992 in the [facility]. The patient came to [facility] in the past 2 months and started using methamphetamine and cannabinoid and he has a prescription from the [facility] to increase his Prograf to 5 mg twice a day and started on prednisone total of 40 mg a day. For the past 2 weeks, the patient's main complaint is diarrhea, though no diarrhea noted during this hospital stay. The patient never collected any stool sample and is complaining of pain, generalized, but mainly on the right side of the abdomen, but no abdominal distention noted. Workup in the Emergency Room revealed WBC of 18,000, but repeat one was 4000 and subsequent one is 8000. Platelet remained at 104,000 to 109,000. Hemoglobin remained steady. The patient received IV fluid, which decreased the AST and ALT level. The patient had a GI consult and ordered the small bowel follow through, which was essentially unremarkable. The patient also had ID consult and multitude of labs carried out, which include blood culture on 04/17/2016 x 2, which was unremarkable. MRSA screen of the nares was positive MRSA. LABORATORY DATA: On 04/21/2016, WBC 6.7, hemoglobin 12.2, on admission was 12.9, MCV 96, and platelet count of 101,000, it was 104,000 on admission. Sodium 136, potassium 3.5, chloride 107, bicarb 25, BUN 21, creatinine 1.1 and a glucose of 121. Bilirubin on admission 2, now is 1.3. AST 105, decreased to 91, ALT 174 decreased from 182 and alkaline phosphatase 740, now 535, albumin is 3.4. Total protein 5.4. Cholesterol 211, LDL 65, HDL 104. Amylase 84 and lipase 56. TSH 1.52. Urine tox screen positive for methamphetamine, amphetamine and cannabinoid. Urinalysis pH 7.0, specific gravity 1.020 and otherwise unremarkable. [facility]# [id number] MTDD
== END 2016-04-21 12:30 | disposition short-term general hospital (02) | DRG 249 ==
LOC: ER 08:02 → MSI 11:08
PROVIDERS: ADMIT Internal Medicine; ATTEND Internal Medicine
DX: K52.9 Noninfective gastroenteritis and colitis, unspecified (principal); R64 Cachexia; D89.9 Disorder involving the immune mechanism, unspecified; Z94.4 Liver transplant status; K75.9 Inflammatory liver disease, unspecified; Z79.899 Other long term (current) drug therapy; E87.6 Hypokalemia; F17.200 Nicotine dependence, unspecified, uncomplicated; Z88.6 Allergy status to analgesic agent; Z88.1 Allergy status to other antibiotic agents
CPT/HCPCS: 36415-UA; 74250-TC; 80053-TC; 80061-TC; 80076-TC; 80320-TC; 81001-TC; 82140-TC; 82150-TC; 83605; 83690-TC; 84443-TC; 84550-TC; 85007-TC; 85025-TC; 85027-TC; 85610-TC; 86663-90; 86664-90; 86665-90; 86695-90; 87169-90; 87230-TC; 87497-90; 87529-90; 87799-90; 96374; 96375; C9113; J1170; J1200; J2270; J2405; J2543; J7030; Z7502